=== PATIENT | female | born 1930 | race Hispanic/Latino ===

== ENCOUNTER 2017-10-10 16:50 | Emergency (ER) | payer MEDICARE, OTHER ==
[2017-10-10 17:07] VITALS: RESP 18
[2017-10-10 17:13] VITALS: BMI 26.6
--- NOTE | 2017-10-10 17:54 | ED PDOC ---
Arrival/HPI - General Chief Complaint: Eye Problem Time Seen by Provider: 10/10/17 17:31 Historian: Patient, Spouse - History of Present Illness Narrative History of Present Illness (Text): 10/10/17 17:50 pt presents with 3 days onset of left eye tearing/eye blurriness; pt states she awoke 3 days ago and noted left facial/eye changes; pt states she felt left facial heaviness and noted severe drooping to left face today; pt also noted while she was drinking her morning beverage, that she was drooling from the left corner of her mouth; pt was seen by her eye doctor and was directed to come to emergency department for further eval; pt's eye doctor states pt likely has bells palsy; pt states no fever/chills/sweats, no chest pain/shortness of breath/palpitations, no abd pain, no n/v, no numbness/tingling, no urinary/ bowel changes, no gait changes, no incontinence, no arm numbness/tingling, no slurr speech, no headache, no focal arm/leg weakness; pt is here for further eval; pt's without other complaints. pt denied fall/trauma/sick contact/travel PCP: Dr Cline Eye: Dr Soto pt is right hand dominate pt denied hx of FL/CVA/TIA Time/Duration: < week (3 days) Symptom Onset: Sudden Symptom Course: Worsening Activities at Onset: Rest Context: Home Past Medical History - Provider Review Nursing Documentation Reviewed: Yes - Travel History Have you recently traveled outside [place] w/in the past 3 mons?: No - Past History Past History: Non-Contributing - Infectious Disease Hx of Infectious Diseases: None - Reproductive Menopause: Yes Currently : No - Cardiac Hx Hypertension: Yes - Musculoskeletal/Rheumatological Hx Arthritis: Yes - Psychiatric Hx Substance Use: No Family/Social History - Physician Review Nursing Documentation Reviewed: Yes Family/Social History: No Known Family HX Smoking Status: Former Smoker Hx Alcohol Use: No Hx Substance Use: No Hx Substance Use Treatment: No Allergies/Home Meds Allergies/Adverse Reactions: Allergies No Known Allergies Allergy (Verified 10/10/17 17:13) Home Medications: Home Meds Medication Instructions Recorded Confirmed Aspirin [Lo-Dose Aspirin EC] 81 mg PO DAILY 10/10/17 10/10/17 NIFEdipine ER [Procardia XL] 60 mg PO DAILY 10/10/17 10/10/17 Nadolol [Corgard] 40 mg PO DAILY 10/10/17 10/10/17 Simvastatin [Zocor] 40 mg PO DIN 10/10/17 10/10/17 Review of Systems - Review of Systems Constitutional: Normal Eyes: Other (left eye blurriness/teary) ENT: Normal Respiratory: Normal. absent: SOB Cardiovascular: Normal. absent: Chest Pain Gastrointestinal: Normal. absent: Abdominal Pain, Nausea, Vomiting Genitourinary Female: Normal Musculoskeletal: Normal Skin: Normal Neurological: Normal, Facial Droop Endocrine: Normal Hemo/Lymphatic: Normal Psychiatric: Normal Physical Exam - Physical Exam Narrative Physical Exam (Text): 10/10/17 17:45 General: alert/awake, GCS = 15, oriented x 3, resting in bed, + comfortable, cooperative, interactive; NAD Head: NC/AT EYE: PERRLA, EOMI, sclera anicteric, no nystagmus, no photophobia; visual field intact b/l; + teary left eye (clear, non-bloody/no discharge noted); pt with difficulty closing left eyelid; no tenderness noted on exam; no FB/masses Facial: WNL Oral: uvula/tongue are midline, no exudate/lesions, no drooling/stridor, no dysphonia; fair dentitions; moist oral mucosa NECK: intact ROM, no midline tenderness, no nuchal rigidity, no meningeal signs ; no step off Chest: CTA b/l, no w/r/r; no tachypenia, no accessory muscle use noted Cardiac: +S1, +S2, no m/r/r, no tachycardia Abdominal: +BS, soft/nd/nt, well nourished patient; no masses/rebound/guarding/ rigidity; no silveira's sign, no mcburney's point tenderness Extremities: intact ROM, strength 5/5 grossly intact in all limbs, neurovasc intact b/l; + ambulatory; reflex +2/2; no pitting edema/swelling b/l; no Susanna' s sign b/l BACK: no step off, no midline tenderness, NO crepitus, no gross deformities noted; Intact ROM SKIN: cap refill < 1 sec, no ulcerations, no petechiae, no rashes NEURO: + left facial droop including left forehead (no creasing is noted), left mid/lower face, + inability to close left eyelid; tongue is midline/no drooling/ stridor; no slurr speech, oriented x 3 NIH stroke scale ~ 1 Psych: normal insight, normal affect; follows command with ease Vital Signs Reviewed: Yes Vital Signs Temp Pulse Resp BP Pulse Ox 10/10/17 17:07 98.1 F 60 18 168/71 H 97 Temperature: Afebrile Blood Pressure: Hypertensive Pulse: Regular Respiratory Rate: Normal Appearance: Positive for: Well-Appearing, Non-Toxic, Comfortable. No: Ill- Appearing, Unkept Pain Distress: None Mental Status: Positive for: Alert and Oriented X 3 - Systems Exam Head: Present: Atraumatic, Normocephalic Medical Decision Making ED Course and Treatment: 10/10/17 17:35 Impression: left facial droop/left eye teary i have consider all the differential diagnosis regarding pt's chief medical complaints/clinical findings, including but are not limited to: likely left bells palsy A/P: left bells palsy - ct - supportive care - observe/reevaluation [address] Shafer, neurologists boning room worker, made aware of pt's emergency department presentation, agrees with txt/dx, recommends MRI as outpt, and can follow up/continue monitor patient as outpt; agrees with mary for the patient 10/10/17 18:42 pt is doing well pt is not in any distress pt is comfortable pt's vital signs are much improved pt is made aware of her medical results pt is encouraged fluids pt is encouraged left eye protection pt will follow up as directed pt will be discharged home Re-evaluation Time: 18:34 Reassessment Condition: Unchanged - RAD Interpretation Narrative RAD Interpretations (Text): 10/10/17 18:34 PROCEDURE: CT HEAD WITHOUT CONTRAST. HISTORY: left facial droop x 3d, likely bells, no trauma COMPARISON: None available. TECHNIQUE: Axial computed tomography images were obtained through the head/brain without intravenous contrast. Coronal and sagittal reconstructed images. Radiation dose: Total exam DLP = 857.57 mGy-cm. This CT exam was performed using one or more of the following dose reduction techniques: Automated exposure control, adjustment of the mA and/or kV according to patient size, and/or use of iterative reconstruction technique. FINDINGS: HEMORRHAGE: No intracranial hemorrhage. BRAIN: No mass effect or edema. Cortical and cerebellar atrophy, periventricular small vessel disease. . VENTRICLES: Unremarkable. No hydrocephalus. CALVARIUM: Unremarkable. PARANASAL SINUSES: Unremarkable as visualized. No significant inflammatory changes. MASTOID AIR CELLS: Unremarkable as visualized. No inflammatory changes. OTHER FINDINGS: None. IMPRESSION: No acute intracranial abnormalities. No significant findings to account for the clinical presentation. Radiology Orders: 10/10/17 17:40 HEAD W/O CONTRAST [CT] Stat Bean Weigher: Radiologist - Medication Orders Current Medication Orders: Discontinued Medications Prednisone (Prednisone Tab) 60 mg PO STAT ONE Stop: 10/10/17 17:47 Last Admin: 10/10/17 18:29 Dose: 60 mg Valacyclovir HCl (Valtrex) 1 gm PO STAT STA PRN Reason: Protocol Stop: 10/10/17 17:45 Last Admin: 10/10/17 18:29 Dose: 1 gm NIHSS Stroke Scale 3 - Date/Time Evaluation Performed Date Performed: 10/10/17 Time Performed: 17:45 When Was NIHSS Performed: Baseline - How Severe is the Stroke Level of Consciousness: 0=Alert LOC to Questions: 0=Both comments correct LOC to commands: 0=Obeys both correctly Best Gaze: 0=Normal Visual: 0=No visual loss Facial: 1=Minor asymmetry Motor Arm - Left: 0=No drift Motor Arm - Right: 0=No drift Motor Leg - Left: 0=No drift Motor Leg - Right: 0=No drift Limb Ataxia: 0=Absent Sensory: 0=Normal Best Language: 0=No aphasia Dysarthia: 0=Normal articulation Extinction & Inattention (Neglect): 0=Normal, no object Score: 1 Disposition/Present on Arrival - Present on Arrival Any Indicators Present on Arrival: No History of DVT/PE: No History of Uncontrolled Diabetes: No Urinary Catheter: No History of Decub. Ulcer: No History Surgical Site Infection Following: None - Disposition Have Diagnosis and Disposition been Completed?: Yes Diagnosis: Left-sided Lewis's palsy, Elevated blood pressure reading Disposition: HOME/ ROUTINE Disposition Time: 18:09 Patient Plan: Discharge Patient Problems: Current Active Problems Problem Status Onset Elevated blood pressure reading Acute Left-sided Lewis's palsy Acute Condition: STABLE Discharge Instructions (ExitCare): Lewis's Palsy (DC), Hypertension (ED) Print Language: BULGARIAN Additional Instructions: Make sure to see your doctor in 1-2 days DRINK PLENTY OF FLUIDS take your medications as prescribed RETURN TO ED IF worse pain, cant breath, persistent vomiting, high fever >101- 102 for hours, altered behavior, slurr speech, facial changes, focal weakness ( arm/leg or both), unable to urinate, heavy/persistent bleeding, passing out, chest pain, or other medical emergencies Prescriptions: predniSONE [predniSONE Tab] 3 tab PO DAILY #12 tab Valacyclovir HCl [Valtrex] 1 gm PO TID #20 tablet Referrals: Abdirashid Gerardo MD [Primary Care Provider] - Follow up with primary Edd Shafer MD [Staff Provider] - Follow up with primary [facility] [Outside] - Follow up with primary [facility] [Outside] - Follow up with primary [facility] [place]] - Follow up with primary Forms: [facility] (Kyrgyz)
--- NOTE | 2017-10-10 18:28 | CT ---
PROCEDURE: CT HEAD WITHOUT CONTRAST. HISTORY: left facial droop x 3d, likely bells, no trauma COMPARISON: None available. TECHNIQUE: Axial computed tomography images were obtained through the head/brain without intravenous contrast. Coronal and sagittal reconstructed images. Radiation dose: Total exam DLP = 857.57 mGy-cm. This CT exam was performed using one or more of the following dose reduction techniques: Automated exposure control, adjustment of the mA and/or kV according to patient size, and/or use of iterative reconstruction technique. FINDINGS: HEMORRHAGE: No intracranial hemorrhage. BRAIN: No mass effect or edema. Cortical and cerebellar atrophy, periventricular small vessel disease. . VENTRICLES: Unremarkable. No hydrocephalus. CALVARIUM: Unremarkable. PARANASAL SINUSES: Unremarkable as visualized. No significant inflammatory changes. MASTOID AIR CELLS: Unremarkable as visualized. No inflammatory changes. OTHER FINDINGS: None. IMPRESSION: No acute intracranial abnormalities. No significant findings to account for the clinical presentation.
[2017-10-10 19:05] VITALS: BP 137/66; TEMP 98.2; O2SAT 96
[2017-10-10 19:08] VITALS: PULSE 55
== END 2017-10-10 19:07 | disposition home or self-care (01) ==
LOC: ED 16:50
DX: G51.0 Bell's palsy (principal); I10 Essential (primary) hypertension; Z87.891 Personal history of nicotine dependence

== ENCOUNTER 2018-07-31 09:58 | Outpatient (CLI) | payer MEDICARE, OTHER | END 2018-07-31 09:59 | disposition home or self-care (01) | LOC: RAD 09:58 | DX: Z12.31 Encounter for screening mammogram for malignant neoplasm of breast (principal) ==